=== PATIENT | male | born 1960 | race American Indian/Alaskan Native ===

== ENCOUNTER 2017-03-03 14:21 | Observation (INO) | payer MEDICAID, OTHER ==
--- NOTE | 2017-03-03 15:19 | C.PDOC ---
History Of Present Illness 57 y/o male with PMHx of CHF, DM, HTN, and ESRD on dialysis for 3 years and neuropathy presents to ED requesting dialysis. Patient states he is from [place] and is in [place] for mother's , was not able to get dialysis on Friday. Pt notes he feels tired, no other complaints. Patient also reports hematuria which he has had for a "long time" and "they dont know why". Denies fever, sob, chest pain, leg swelling, nausea, vomiting or any other complaints at this time. Time Seen by Provider: 03/03/17 14:58 Chief Complaint (Nursing): Medical Clearance History Per: Patient History/Exam Limitations: no limitations Onset/Duration Of Symptoms: Days Current Symptoms Are (Timing): Still Present Past Medical History Reviewed: Historical Data, Nursing Documentation, Vital Signs Vital Signs: Last Vital Signs Temp 97.8 F 03/03/17 17:14 Pulse 70 03/03/17 17:14 Resp 16 03/03/17 17:14 BP 126/82 03/03/17 17:14 Pulse Ox 94 L 03/03/17 17:14 - Medical History PMH: CHF, HTN, End Stage Renal Disease Surgical History: No Surg Hx Family History: States: No Known Family Hx - Social History Hx Alcohol Use: No Hx Substance Use: No - Immunization History Hx Tetanus Toxoid Vaccination: No Hx Influenza Vaccination: Yes Hx Pneumococcal Vaccination: Yes Review Of Systems Constitutional: Negative for: Fever, Chills Cardiovascular: Negative for: Chest Pain Respiratory: Negative for: Shortness of Breath Gastrointestinal: Negative for: Nausea, Vomiting Skin: Negative for: Rash Physical Exam - Physical Exam Appears: Non-toxic, No Acute Distress, Other (Morbidly obese) Skin: Warm, Dry, Other ((+) chronic b/l lower leg changes) Head: Atraumatic, Normacephalic Eye(s): bilateral: Normal Inspection, EOMI Nose: Normal Oral Mucosa: Moist Neck: Normal ROM, Supple Chest: Symmetrical Cardiovascular: Rhythm Regular Respiratory: Normal Breath Sounds, No Accessory Muscle Use Gastrointestinal/Abdominal: Soft, No Tenderness, No Guarding Extremity: Normal ROM, Capillary Refill (<2 seconds) Neurological/Psych: Oriented x3 ED Course And Treatment - Laboratory Results Result Diagrams: 03/03/17 15:45 03/03/17 15:45 O2 Sat by Pulse Oximetry: 100 (RA) Pulse Ox Interpretation: Normal Progress Note: Blood work and UA ordered. Case discussed with Dr Morrell, agreed upon admission and dialysis. Case discussed with Dr Acosta , agreeed upon admission. Disposition - Disposition Disposition: HOSPITALIZED Disposition Time: 18:10 Condition: STABLE - Clinical Impression Clinical Impression: ESRD needing dialysis - PA / MEDICAL INTERN / Resident Statement MD/DO has reviewed & agrees with the documentation as recorded. - Scribe Statement The provider has reviewed the documentation as recorded by the Mtibmariangel Rodriguez All medical record entries made by the Jeannette were at my direction and personally dictated by me. I have reviewed the chart and agree that the record accurately reflects my personal performance of the history, physical exam, medical decision making, and the department course for this patient. I have also personally directed, reviewed, and agree with the discharge instructions and disposition.
[2017-03-03 15:57] LABS: BASO # 0.1 K/uL (0.0-0.2); BASO % 1.3 % (0.0-2.0); EOS # 0.3 K/uL (0.0-0.7); EOS % 4.5 % (0.0-4.0); HEMOGLOBIN 10.1 g/dL (12.0-18.0); LYMPH # 1.3 K/uL (1.0-4.3); MEAN CELL VOLUME 98.5 fL (80.0-94.0); MEAN CORPUSCULAR HEMOGLOBIN 32.5 pg (27.0-31.0); MEAN PLATELET VOLUME 7.6 fL (7.2-11.7); MONO # 0.5 K/uL (0.0-0.8); MONO % 9.7 % (0.0-10.0); NEUT # 3.5 K/uL (1.8-7.0); NEUT % 61.5 % (50.0-75.0); NRBC % 0.1 % (0.0-2.0); RBC 3.12 Mil/uL (4.40-5.90); RED CELL DISTRIBUTION WIDTH 14.1 % (11.5-14.5); WHITE BLOOD COUNT 5.6 K/uL (4.8-10.8)
[2017-03-03 16:25] LABS: ALB/GLOB RATIO 1.1 (1.0-2.1); ALBUMIN 3.8 g/dL (3.5-5.0)
[2017-03-03] MEDS: Naproxen 550 mg Tab PO ONE (19:41)
[2017-03-03 20:05] LABS: SQUAMOUS EPITHIAL 2 /hpf (0-5); URINE BACTERIA FEW (<OCC); URINE BILIRUBIN NEGATIVE (NEGATIVE); URINE BLOOD 3+ (NEGATIVE); URINE CLARITY Hazy (Clear); URINE COLOR Yellow (YELLOW); URINE GLUCOSE (UA) NORMAL (Normal); URINE LEUKOCYTE ESTERASE NEG Leu/uL (Negative); URINE NITRATE NEGATIVE (NEGATIVE); URINE PROTEIN 3+ mg/dL (NEGATIVE); URINE UROBILINOGEN NORMAL mg/dL (0.2-1.0)
--- NOTE | 2017-03-03 20:11 | CP.PCM.HP ---
History of Present Illness - History of Present Illness History of Present Illness: PGY-1 H&P for Dr. Acosta CC: missed dialysis This is a 57 year old male with PMHx DM, ESRD on HD (, , ), CHF s/p pacemaker, HTN, CVA (no residual deficits), [place] who presents requesting hemodialysis due to a missed dialysis session lasT Friday. Patient states that he missed his appointment because he was visiting [place] due to the recent passing of his mother. Patient reports generalized body aches for which he states IV opiates are the only thing which effectively deal with his pain. Patient admits that he will periodically be admitted to the hospital back home for pain management in order to receive IV medications to better manage his symptoms. Patient reports that he has no other acute complaints at this time aside from generalized malaise which stems from having missed his dialysis. Patient states that he just started undergoing hemodialysis just a couple of years ago. PMHx: DM, ESRD on HD (, , ), CHF s/p pacemaker, HTN, CVA (no residual deficits), [place] PSHx: Pericardial window, pacemaker insertion Allergies: NKDA Social: Visiting from [place]. States that he quit using tobacco, alcohol, and drugs over 30 years ago. PMD: Dr. Cuellar Home meds: Lisinopril 10 mg daily, Gabapentin 300 mg PO TID, Percocet 10-325mg as needed Present on Admission - Present on Admission Any Indicators Present on Admission: No Review of Systems - Constitutional Constitutional: Chills. absent: Fever - EENT Eyes: absent: Change in Vision Ears: absent: Decreased Hearing Nose/Mouth/Throat: absent: Nasal Congestion - Cardiovascular Cardiovascular: absent: Chest Pain - Respiratory Respiratory: absent: Cough, Dyspnea - Gastrointestinal Gastrointestinal: absent: Abdominal Pain, Constipation, Diarrhea, Nausea, Vomiting - Genitourinary Genitourinary: absent: Dysuria - Musculoskeletal Musculoskeletal: Other (chronic generalized body aches secondary to neuropathy) - Integumentary Integumentary: absent: Rash - Neurological Neurological: absent: Dizziness, Weakness - Psychiatric Psychiatric: absent: Anxiety - Endocrine Endocrine: Fatigue. absent: Palpitations Past Patient History - Infectious Disease Hx of Infectious Diseases: None - Past Social History Smoking Status: Never Smoked - CARDIAC Hx Congestive Heart Failure: Yes Hx Hypertension: Yes - NEUROLOGICAL HX Cerebrovascular Accident: Yes - RENAL Type of Dialysis Access: Left arm av shunt Date of Last Dialysis Treatment: 02/27/17 Hx Renal Failure: Yes Other/Comment: dialysis days -fri - ENDOCRINE/METABOLIC Hx Diabetes Mellitus Type 2: Yes - PSYCHIATRIC Hx Substance Use: No - SURGICAL HISTORY Hx Surgeries: Yes Other/Comment: left arm av shunt placement. heart surgery to remove fluid from the heart - ANESTHESIA Hx Anesthesia: Yes Hx Anesthesia Reactions: No Hx Malignant Hyperthermia: No Meds Allergies/Adverse Reactions: Allergies Allergy/AdvReac Type Severity Reaction Status Date / Time No Known Allergies Allergy Verified 03/03/17 14:47 Physical Exam - Constitutional Appears: No Acute Distress - Head Exam Head Exam: ATRAUMATIC, NORMOCEPHALIC - Eye Exam Eye Exam: EOMI, PERRL - ENT Exam ENT Exam: Mucous Membranes Moist - Respiratory Exam Respiratory Exam: Clear to Auscultation Bilateral, NORMAL BREATHING PATTERN. absent: Rhonchi, Wheezes - Cardiovascular Exam Cardiovascular Exam: Gallop (S3), REGULAR RHYTHM, +S1, +S2 - GI/Abdominal Exam GI & Abdominal Exam: Distended, Normal Bowel Sounds, Soft. absent: Firm, Tenderness Additional comments: morbidly obese body habitus - Extremities Exam Extremities exam: Positive for: pedal edema, pedal pulses present. Negative for : tenderness Additional comments: left arm AV fistula with bruits auscultated - Neurological Exam Neurological exam: Alert, CN II-XII Intact, Oriented x3 - Psychiatric Exam Psychiatric exam: Flat Affect - Skin Skin Exam: Dry, Warm Results - Vital Signs Recent Vital Signs: Last Vital Signs Temp 97.8 F 03/03/17 17:14 Pulse 70 03/03/17 17:14 Resp 16 03/03/17 17:14 BP 82/69 L 03/03/17 19:57 Pulse Ox 100 03/03/17 18:10 - Labs Result Diagrams: 03/03/17 15:45 03/03/17 15:45 Labs: Laboratory Results - last 24 hr 03/03/17 03/03/17 15:45 15:45 WBC 5.6 RBC 3.12 L Hgb 10.1 L Hct 30.7 L MCV 98.5 H MCH 32.5 H MCHC 33.0 RDW 14.1 Plt Count 155 MPV 7.6 Neut % (Auto) 61.5 Lymph % (Auto) 23.0 [place] % (Auto) 9.7 Eos % (Auto) 4.5 H Baso % (Auto) 1.3 Neut # 3.5 Lymph # 1.3 [place] # 0.5 Eos # 0.3 Baso # 0.1 Sodium 135 Potassium 4.4 Chloride 98 Carbon Dioxide 24 Anion Gap 18 BUN 65 H Creatinine 11.9 H* Est GFR ( Amer) 5 Est GFR (Non-Af Amer) 4 Random Glucose 116 H Calcium 9.0 Total Bilirubin 1.7 H AST 15 L ALT 14 L Alkaline Phosphatase 67 Total Protein 7.3 Albumin 3.8 Globulin 3.5 Albumin/Globulin Ratio 1.1 Assessment & Plan - Assessment and Plan (Free Text) Plan: ESRD on HD ED spoke with [employer] Dr. Morrell who was later consulted, help appreciated. Orders for HD T, Th, S placed. History of HTN Continue home Lisinopril 10 mg PO daily History of Diabetes Per patient, he does not take medications for his diabetes Accuchecks Regular ISS F/u hemoglobin A1c History of CHF s/p pacemaker f/u echo History of Neuropathy Continue home Gabapentin 300 mg PO TID Prophylactic Measure Pepcid 20 mg PO daily Heparin 5000 units SC Q8H Renal dialysis diet Dilaudid 1 mg Q6 prn severe pain Case DW Dr. Dave Moncada PGY-1
[2017-03-03] MEDS ORDERED: EPOETIN ALFA 4,000 UNIT/ML ML Dialysis IV SCH (20:15)
[2017-03-03] MEDS ORDERED: HYDROmorphone 1 mg/ml ISec IVP PRN (20:28)
[2017-03-03] MEDS ORDERED: Glucagon Recombinant 1 mg Inj IM PRN (20:30)
[2017-03-03] MEDS ORDERED: Dextrose 50% SYRINGE Inj (50 ml) IV PRN (20:30)
[2017-03-03 20:49] LABS: HEPATITIS B CORE AB Negative (NEGATIVE)
[2017-03-03 21:02] LABS: HEPATITIS C ANTIBODY Negative (NEGATIVE)
[2017-03-03 21:22] LABS: HEPATITIS B SURFACE AG NEGATIVE (NEGATIVE)
[2017-03-03] MEDS: (Novolin R) Insulin Human Regular 100 units/ml vial SC SCH (22:07)
[2017-03-04] MEDS ORDERED: Multivitamin Vitamin B Complex (Nephro-Vite) Tab PO SCH (08:00)
[2017-03-04] MEDS: (Novolin R) Insulin Human Regular 100 units/ml vial SC SCH ×3 (08:18→16:00)
[2017-03-04 14:44] LABS: BASO # 0.1 K/uL (0.0-0.2); BASO % 1.4 % (0.0-2.0); EOS # 0.2 K/uL (0.0-0.7); EOS % 4.7 % (0.0-4.0); HEMOGLOBIN 9.8 g/dL (12.0-18.0); LYMPH # 1.2 K/uL (1.0-4.3); LYMPH % 27.5 % (20.0-40.0); MEAN CELL VOLUME 97.9 fL (80.0-94.0); MEAN CORPUSCULAR HEMOGLOBIN 32.1 pg (27.0-31.0); MEAN CORPUSCULAR HGB CONC 32.8 g/dL (33.0-37.0); MEAN PLATELET VOLUME 7.3 fL (7.2-11.7); MONO # 0.4 K/uL (0.0-0.8); MONO % 7.8 % (0.0-10.0); NEUT # 2.6 K/uL (1.8-7.0); NEUT % 58.6 % (50.0-75.0); RBC 3.06 Mil/uL (4.40-5.90); RED CELL DISTRIBUTION WIDTH 14.2 % (11.5-14.5); WHITE BLOOD COUNT 4.5 K/uL (4.8-10.8)
[2017-03-04 15:04] LABS: CALCIUM 8.3 mg/dl (8.6-10.4); MAGNESIUM 1.6 mg/dL (1.6-2.3)
[2017-03-04 15:13] VITALS: RESP 16
--- NOTE | 2017-03-04 15:40 | CP.PCM.CON ---
History of Present Illness - History of Present Illness History of Present Illness: Renal Note Pt seen and examined will plan for HD today as per TTS schedule epogen with HD as ordered nephrovite 1 tab/day d/c planning pt stable from renal perspective Past Patient History - Infectious Disease Hx of Infectious Diseases: None - Past Social History Smoking Status: Never Smoked - CARDIAC Hx Congestive Heart Failure: Yes Hx Hypertension: Yes - NEUROLOGICAL HX Cerebrovascular Accident: Yes - RENAL Type of Dialysis Access: Left arm av shunt Date of Last Dialysis Treatment: 02/27/17 Hx Renal Failure: Yes Other/Comment: dialysis days [id number] - ENDOCRINE/METABOLIC Hx Diabetes Mellitus Type 2: Yes - PSYCHIATRIC Hx Substance Use: No - SURGICAL HISTORY Hx Surgeries: Yes Other/Comment: left arm av shunt placement. heart surgery to remove fluid from the heart - ANESTHESIA Hx Anesthesia: Yes Hx Anesthesia Reactions: No Hx Malignant Hyperthermia: No Meds Allergies/Adverse Reactions: Allergies Allergy/AdvReac Type Severity Reaction Status Date / Time No Known Allergies Allergy Verified 03/03/17 14:47 - Medications Medications: Current Medications Dextrose (Dextrose 50% Inj) 0 ml IV STAT PRN; Protocol PRN Reason: Hypoglycemia Protocol Dextrose (Glutose 15) 0 gm PO ONCE PRN; Protocol PRN Reason: Hypoglycemia Protocol Epoetin Brent (Procrit) 4,000 unit IV [facility] Famotidine (Pepcid) 20 mg PO DAILY [facility] Last Admin: 03/04/17 12:00 Dose: 20 mg Gabapentin (Neurontin) 300 mg PO TID [facility] Last Admin: 03/04/17 14:00 Dose: Not Given Glucagon (Glucagen Diagnostic Kit) 0 mg IM STAT PRN; Protocol PRN Reason: Hypoglycemia Protocol Heparin Sodium (Porcine) (Heparin) 5,000 units SC Q8 [facility] Last Admin: 03/04/17 14:00 Dose: Not Given Hydromorphone HCl (Dilaudid) 1 mg IVP Q6H PRN PRN Reason: Pain, severe (8-10) Last Admin: 03/04/17 11:55 Dose: 1 mg Dextrose (Dextrose 5% In Water 1000 Ml) 1,000 mls @ 0 mls/hr IV .Q0M PRN; Protocol; Per Protocol PRN Reason: Hypoglycemia Protocol Insulin Human Regular (Novolin R) 0 unit SC ACHS [facility] PRN Reason: Protocol Last Admin: 03/04/17 12:51 Dose: Not Given Lisinopril (Zestril) 10 mg PO DAILY [facility] Last Admin: 03/04/17 11:59 Dose: Not Given Vitamin B Complex/Vit C/Folic Acid (Nephro-Adrian) 1 tab PO 0800 [facility] Last Admin: 03/04/17 08:24 Dose: 1 tab Results - Vital Signs Recent Vital Signs: Last Vital Signs Temp 97.5 F L 03/04/17 14:10 Pulse 77 03/04/17 14:10 Resp 16 03/04/17 14:10 BP 103/67 03/04/17 14:22 Pulse Ox 97 03/04/17 14:10 - Labs Result Diagrams: 03/04/17 14:39 03/04/17 14:39 Labs: Laboratory Results - last 24 hr 03/03/17 03/03/17 03/03/17 15:45 15:45 19:49 WBC 5.6 RBC 3.12 L Hgb 10.1 L Hct 30.7 L MCV 98.5 H MCH 32.5 H MCHC 33.0 RDW 14.1 Plt Count 155 MPV 7.6 Neut % (Auto) 61.5 Lymph % (Auto) 23.0 [place] % (Auto) 9.7 Eos % (Auto) 4.5 H Baso % (Auto) 1.3 Neut # 3.5 Lymph # 1.3 [place] # 0.5 Eos # 0.3 Baso # 0.1 APTT Sodium 135 Potassium 4.4 Chloride 98 Carbon Dioxide 24 Anion Gap 18 BUN 65 H Creatinine 11.9 H* Est GFR ( Amer) 5 Est GFR (Non-Af Amer) 4 POC Glucose (mg/dL) Random Glucose 116 H Hemoglobin A1c Calcium 9.0 Phosphorus Magnesium Total Bilirubin 1.7 H AST 15 L ALT 14 L Alkaline Phosphatase 67 Total Protein 7.3 Albumin 3.8 Globulin 3.5 Albumin/Globulin Ratio 1.1 Triglycerides Cholesterol LDL Cholesterol Direct HDL Cholesterol Urine Color Urine Clarity Urine pH Ur Specific [place] Urine Protein Urine Glucose (UA) Urine Ketones Urine Blood Urine Nitrate Urine Bilirubin Urine Urobilinogen Ur Leukocyte Esterase Urine WBC (Auto) Urine RBC (Auto) Ur Squamous Epith Cells Urine Bacteria Hep Bs Antigen Negative Hep Bs Antibody Hep B Core IgM Ab Negative Hepatitis C Antibody Negative 03/03/17 03/03/17 03/03/17 19:49 19:50 21:49 WBC RBC Hgb Hct MCV MCH MCHC RDW Plt Count MPV Neut % (Auto) Lymph % (Auto) [place] % (Auto) Eos % (Auto) Baso % (Auto) Neut # Lymph # [place] # Eos # Baso # APTT Sodium Potassium Chloride Carbon Dioxide Anion Gap BUN Creatinine Est GFR ( Amer) Est GFR (Non-Af Amer) POC Glucose (mg/dL) 73 Random Glucose Hemoglobin A1c Calcium Phosphorus Magnesium Total Bilirubin AST ALT Alkaline Phosphatase Total Protein Albumin Globulin Albumin/Globulin Ratio Triglycerides Cholesterol LDL Cholesterol Direct HDL Cholesterol Urine Color Yellow Urine Clarity Hazy Urine pH 6.0 Ur Specific [place] 1.014 Urine Protein 3+ H Urine Glucose (UA) Normal Urine Ketones Negative Urine Blood 3+ H Urine Nitrate Negative Urine Bilirubin Negative Urine Urobilinogen Normal Ur Leukocyte Esterase Neg Urine WBC (Auto) 4 Urine RBC (Auto) 966 H Ur Squamous Epith Cells 2 Urine Bacteria Few H Hep Bs Antigen Hep Bs Antibody Indeterminate Hep B Core IgM Ab Hepatitis C Antibody 03/04/17 03/04/17 03/04/17 07:13 11:17 14:39 WBC 4.5 L RBC 3.06 L Hgb 9.8 L Hct 30.0 L MCV 97.9 H MCH 32.1 H MCHC 32.8 L RDW 14.2 Plt Count 156 MPV 7.3 Neut % (Auto) 58.6 Lymph % (Auto) 27.5 [place] % (Auto) 7.8 Eos % (Auto) 4.7 H Baso % (Auto) 1.4 Neut # 2.6 Lymph # 1.2 [place] # 0.4 Eos # 0.2 Baso # 0.1 APTT Sodium Potassium Chloride Carbon Dioxide Anion Gap BUN Creatinine Est GFR ( Amer) Est GFR (Non-Af Amer) POC Glucose (mg/dL) 79 85 Random Glucose Hemoglobin A1c Calcium Phosphorus Magnesium Total Bilirubin AST ALT Alkaline Phosphatase Total Protein Albumin Globulin Albumin/Globulin Ratio Triglycerides Cholesterol LDL Cholesterol Direct HDL Cholesterol Urine Color Urine Clarity Urine pH Ur Specific [place] Urine Protein Urine Glucose (UA) Urine Ketones Urine Blood Urine Nitrate Urine Bilirubin Urine Urobilinogen Ur Leukocyte Esterase Urine WBC (Auto) Urine RBC (Auto) Ur Squamous Epith Cells Urine Bacteria Hep Bs Antigen Hep Bs Antibody Hep B Core IgM Ab Hepatitis C Antibody 03/04/17 03/04/17 03/04/17 14:39 14:39 14:39 WBC RBC Hgb Hct MCV MCH MCHC RDW Plt Count MPV Neut % (Auto) Lymph % (Auto) [place] % (Auto) Eos % (Auto) Baso % (Auto) Neut # Lymph # [place] # Eos # Baso # APTT 33 Sodium 132 Potassium 3.6 Chloride 95 L Carbon Dioxide 25 Anion Gap 16 BUN 43 H Creatinine 9.0 H* D Est GFR ( Amer) 7 Est GFR (Non-Af Amer) 6 POC Glucose (mg/dL) Random Glucose 128 H Hemoglobin A1c 5.5 Calcium 8.3 L Phosphorus 5.7 H Magnesium 1.6 Total Bilirubin AST ALT Alkaline Phosphatase Total Protein Albumin Globulin Albumin/Globulin Ratio Triglycerides 86 Cholesterol 127 LDL Cholesterol Direct 62 HDL Cholesterol 34 Urine Color Urine Clarity Urine pH Ur Specific [place] Urine Protein Urine Glucose (UA) Urine Ketones Urine Blood Urine Nitrate Urine Bilirubin Urine Urobilinogen Ur Leukocyte Esterase Urine WBC (Auto) Urine RBC (Auto) Ur Squamous Epith Cells Urine Bacteria Hep Bs Antigen Hep Bs Antibody Hep B Core IgM Ab Hepatitis C Antibody
--- NOTE | 2017-03-04 15:49 | CP.PCM.DIS ---
Provider - Provider Date of Admission: 03/03/17 17:07 Attending physician: Robin Acosta Jr, MD Consults: Nephro: Porsche Time Spent in preparation of Discharge (in minutes): 31 Hospital Course - Lab Results Lab Results: Most Recent Lab Values WBC 4.5 K/uL (4.8-10.8) L 03/04/17 14:39 RBC 3.06 Mil/uL (4.40-5.90) L 03/04/17 14:39 Hgb 9.8 g/dL (12.0-18.0) L 03/04/17 14:39 Hct 30.0 % (35.0-51.0) L 03/04/17 14:39 MCV 97.9 fL (80.0-94.0) H 03/04/17 14:39 MCH 32.1 pg (27.0-31.0) H 03/04/17 14:39 MCHC 32.8 g/dL (33.0-37.0) L 03/04/17 14:39 RDW 14.2 % (11.5-14.5) 03/04/17 14:39 Plt Count 156 K/uL (130-400) 03/04/17 14:39 MPV 7.3 fL (7.2-11.7) 03/04/17 14:39 Neut % (Auto) 58.6 % (50.0-75.0) 03/04/17 14:39 Lymph % (Auto) 27.5 % (20.0-40.0) 03/04/17 14:39 [place] % (Auto) 7.8 % (0.0-10.0) 03/04/17 14:39 Eos % (Auto) 4.7 % (0.0-4.0) H 03/04/17 14:39 Baso % (Auto) 1.4 % (0.0-2.0) 03/04/17 14:39 Neut # 2.6 K/uL (1.8-7.0) 03/04/17 14:39 Lymph # 1.2 K/uL (1.0-4.3) 03/04/17 14:39 [place] # 0.4 K/uL (0.0-0.8) 03/04/17 14:39 Eos # 0.2 K/uL (0.0-0.7) 03/04/17 14:39 Baso # 0.1 K/uL (0.0-0.2) 03/04/17 14:39 APTT 33 SECONDS (21-34) 03/04/17 14:39 Sodium 132 mmol/L (132-148) 03/04/17 14:39 Potassium 3.6 mmol/L (3.6-5.2) 03/04/17 14:39 Chloride 95 mmol/L (98-107) L 03/04/17 14:39 Carbon Dioxide 25 mmol/L (22-30) 03/04/17 14:39 Anion Gap 16 (10-20) 03/04/17 14:39 BUN 43 mg/dL (9-20) H 03/04/17 14:39 Creatinine 9.0 mg/dL (0.8-1.5) H* D 03/04/17 14:39 Est GFR ( Amer) 7 03/04/17 14:39 Est GFR (Non-Af Amer) 6 03/04/17 14:39 POC Glucose (mg/dL) 85 mg/dL (65-110) 03/04/17 11:17 Random Glucose 128 mg/dL (75-110) H 03/04/17 14:39 Hemoglobin A1c 5.5 % (4.2-6.5) 03/04/17 14:39 Calcium 8.3 mg/dl (8.6-10.4) L 03/04/17 14:39 Phosphorus 5.7 mg/dL (2.5-4.5) H 03/04/17 14:39 Magnesium 1.6 mg/dL (1.6-2.3) 03/04/17 14:39 Total Bilirubin 1.7 mg/dL (0.2-1.3) H 03/03/17 15:45 AST 15 U/L (17-59) L 03/03/17 15:45 ALT 14 U/L (21-72) L 03/03/17 15:45 Alkaline Phosphatase 67 U/L (38-126) 03/03/17 15:45 Total Protein 7.3 g/dL (6.3-8.3) 03/03/17 15:45 Albumin 3.8 g/dL (3.5-5.0) 03/03/17 15:45 Globulin 3.5 gm/dL (2.2-3.9) 03/03/17 15:45 Albumin/Globulin Ratio 1.1 (1.0-2.1) 03/03/17 15:45 Triglycerides 86 mg/dL (0-149) 03/04/17 14:39 Cholesterol 127 mg/dL (0-199) 03/04/17 14:39 LDL Cholesterol Direct 62 mg/dL (0-129) 03/04/17 14:39 HDL Cholesterol 34 mg/dL (30-70) 03/04/17 14:39 Urine Color Yellow (YELLOW) 03/03/17 19:50 Urine Clarity Hazy (Clear) 03/03/17 19:50 Urine pH 6.0 (5.0-8.0) 03/03/17 19:50 Ur Specific [place] 1.014 (1.003-1.030) 03/03/17 19:50 Urine Protein 3+ mg/dL (NEGATIVE) H 03/03/17 19:50 Urine Glucose (UA) Normal mg/dL (Normal) 03/03/17 19:50 Urine Ketones Negative mg/dL (NEGATIVE) 03/03/17 19:50 Urine Blood 3+ (NEGATIVE) H 03/03/17 19:50 Urine Nitrate Negative (NEGATIVE) 03/03/17 19:50 Urine Bilirubin Negative (NEGATIVE) 03/03/17 19:50 Urine Urobilinogen Normal mg/dL (0.2-1.0) 03/03/17 19:50 Ur Leukocyte Esterase Neg [place]/uL (Negative) 03/03/17 19:50 Urine WBC (Auto) 4 /hpf (0-5) 03/03/17 19:50 Urine RBC (Auto) 966 /hpf (0-3) H 03/03/17 19:50 Ur Squamous Epith Cells 2 /hpf (0-5) 03/03/17 19:50 Urine Bacteria Few (<OCC) H 03/03/17 19:50 Hep Bs Antigen Negative (NEGATIVE) 03/03/17 19:49 Hep Bs Antibody Indeterminate (NEGATIVE) 03/03/17 19:49 Hep B Core IgM Ab Negative (NEGATIVE) 03/03/17 19:49 Hepatitis C Antibody Negative (NEGATIVE) 03/03/17 19:49 - Hospital Course Hospital Course: This is a 57 year old male with PMHx DM, ESRD on HD (T, , S), CHF s/p pacemaker, HTN, CVA (no residual deficits), [place] who presents requesting hemodialysis due to a missed dialysis session lasT Friday. Patient states that he missed his appointment because he was visiting [place] due to the recent passing of his mother. Patient reports generalized body aches for which he states IV opiates are the only thing which effectively deal with his pain. Patient admits that he will periodically be admitted to the hospital back home for pain management in order to receive IV medications to better manage his symptoms. Patient reports that he has no other acute complaints at this time aside from generalized malaise which stems from having missed his dialysis. Patient states that he just started undergoing hemodialysis just a couple of years ago. Patient was admitted to the hospital. Nephrology was consulted. Patient went for dialysis on night of admission. Patient also went for dialysis on scheduled dialysis day (Friday). Patient has a history of CHF. Echo was done and showed LVEF 51% (prelim report). Patient was medically stable per Nephrology and discharged home. Patient instructed to continue home medications and follow up with PMD upon discharge. Patient also advised to keep his dialysis session. In the event that he misses another dialysis session, patient advised to go to the nearest Emergency Dept. All question and concerns were addressed. Discharge Exam - Head Exam Head Exam: ATRAUMATIC, NORMOCEPHALIC - Eye Exam Eye Exam: EOMI, Normal appearance - ENT Exam ENT Exam: Mucous Membranes Moist - Respiratory Exam Respiratory Exam: Clear to PA & Lateral, NORMAL BREATHING PATTERN, UNREMARKABLE. absent: Decreased Breath Sounds, Rales, Rhonchi, Wheezes - Cardiovascular Exam Cardiovascular Exam: REGULAR RHYTHM, +S1, +S2 - GI/Abdominal Exam GI & Abdominal Exam: Normal Bowel Sounds, Soft. absent: Guarding, Rebound, Rigid, Tenderness Additional comments: +obese - Extremities Exam Extremities exam: pedal pulses present Additional comments: L arm AVF : +thrill, distal pulses intact - Neurological Exam Neurological exam: Alert, Oriented x3 - Psychiatric Exam Psychiatric exam: Flat Affect, Normal Mood - Skin Skin Exam: Dry, Normal Color, Warm Discharge Plan - Follow Up Plan Condition: STABLE Disposition: HOME/ ROUTINE Instructions: Dialysis Diet (DC), End Stage Kidney Disease (DC) Referrals: Robin Acosta Jr., MD [Medical Doctor] - Clinical Quality Measures - CQM - Heart Failure Ejection Fraction: 40 % or Greater JAMES Inhibitor Prescribed: Yes Beta-Nery Prescribed: None Contraindication/Reason for not providing: Episodes of Hypotension during admission Angiotensin II Receptor Nery Prescribed: No Contraindication/Reason for not providing: Patient on ACEi AnticoagulationTherapy for Atrial Fibrillation/Atrialflutter: No Contraindication/Reason for not providing: Not indicated, no history of Afib Aldosterone Antagonist Prescribed: No Contraindication/Reason for not providing: Episodes on hypotension Hydralazine Nitrate Prescribed: No Contraindication/Reason for not providing: Not indicated Implantable Cardioverter Defibrillator Therapy: No Contraindication/Reason for not providing: Normal LVEF 51% Cardiac Resynchronization Therapy Prescribed: No Contraindication/Reason for not providing: Not indicated Will be discharged to: Home Follow Up Date (must be within 7 days from discharge): 03/11/17 Follow Up Time: 09:00
[2017-03-04] MEDS ORDERED: EPOETIN ALFA 4,000 UNIT/ML ML Dialysis IV SCH (15:52)
[2017-03-04 17:46] VITALS: BP 129/67; PULSE 68; TEMP 97.3; O2SAT 98
--- NOTE | 2017-03-05 07:20 | CARD ---
APPROVED REPORT EXAM: Two-dimensional and M-mode echocardiogram with Doppler and color Doppler. Other Information Quality : AverageRhythm : INDICATION Pericardial Effusion Acute DE Congestive Heart Failure RISK FACTORS Obesity 2D DIMENSIONS IVSd0.9 (0.7-1.1cm)LVDd6.5 (3.9-5.9cm) PWd1.2 (0.7-1.1cm)LVDs4.7 (2.5-4.0cm) FS (%) 27.0 %PWs1.5 (0.8-1.2cm) LVEF (%)25.0 (>50%) M-Mode DIMENSIONS LVEF (%)25 (>50%) Mitral Valve MV E Muecdbze239.6cm/sE/A ratio0.0 TDI E/Lateral E'0.0E/Medial E'0.0 Tricuspid Valve TR Peak [id number]/sTR Peak Gr.[id number] LEFT VENTRICLE The Left Ventricle is moderately dilated. There is normal left ventricular wall thickness. Left ventricle is severely impaired. The Ejection Fraction is 25-30%. There is severe global hypokinesis of the left ventricle. The left ventricular diastolic function is normal. RIGHT VENTRICLE The right ventricle is normal size. There is normal right ventricular wall thickness. The right ventricular systolic function is normal. ATRIA The left atrium is moderately dilated. The right atrium is mildly dilated. The interatrial septum is intact with no evidence for an atrial septal defect. AORTIC VALVE The aortic valve is mildly thickened and calcified but opens well- can't rule out vegetations. Please correlate clinically. No aortic regurgitation is present. There is no aortic valvular stenosis. MITRAL VALVE Mitral annular calcification is mild. The posterior mitral valve leaflet appears thickened, but open well. There is no evidence of mitral valve prolapse. There is no mitral valve stenosis. Mitral regurgitation is mild. TRICUSPID VALVE The tricuspid valve is normal in structure. There is mild to moderate tricuspid regurgitation. Right ventricular systolic pressure is estimated at greater than 60 mmHg. There is severe pulmonary hypertension. There is no tricuspid valve prolapse or vegetation. There is no tricuspid valve stenosis. PULMONIC VALVE The pulmonic valve is not well visualized. There is no pulmonic valvular regurgitation. GREAT VESSELS The aortic root is normal in size. PERICARDIAL EFFUSION There is no siginificant pericardial effusion. <Conclusion> Left ventricle is severely impaired. The Ejection Fraction is 25-30%. No aortic regurgitation is present. Mitral regurgitation is mild. There is mild to moderate tricuspid regurgitation. There is severe pulmonary hypertension. There is no pulmonic valvular regurgitation.
== END 2017-03-04 22:43 | disposition home or self-care (01) ==
LOC: C.ER 14:21 → C.9E 17:07 → C.3T 19:40
PROVIDERS: ADMIT Internal Medicine; ATTEND Internal Medicine
DX: I13.2 Hypertensive heart and chronic kidney disease with heart failure and with stage 5 chronic kidney disease, or end stage renal disease (principal); N18.6 End stage renal disease; I50.9 Heart failure, unspecified; Z87.891 Personal history of nicotine dependence; Z99.2 Dependence on renal dialysis
CPT/HCPCS: 36415; 80048; 80053; 80061; 81001; 82948; 83036; 83735; 84100; 85025; 85730; 86705; 86706; 86803; 87340; 93306; 99285; G0257; G0378; J0885; J1170; J1644

== ENCOUNTER 2017-03-06 14:55 | Observation (INO) | payer MEDICAID ==
--- NOTE | 2017-03-06 16:24 | C.PDOC ---
History Of Present Illness 57-year-old male, PMHx includes ESRD (dialysis //Fri), presents to the emergency department with complaints of bodyaches and pain in legs. Patient states he is traveling here from [place], and has not been able to receive dialysis. Patient states he was seen on 03/03 and had a normal exam. Denies chest pain, shortness of breath, fevers, chills, dizziness, or any other associated symptoms. No other complaints at this time. Time Seen by Provider: 03/06/17 15:49 Chief Complaint (Nursing): Lower Extremity Problem/Injury History Per: Patient Past Medical History Reviewed: Historical Data, Nursing Documentation, Vital Signs Vital Signs: Last Vital Signs Temp 98.3 F 03/06/17 15:13 Pulse 73 03/06/17 15:13 Resp 18 03/06/17 15:13 BP 143/84 03/06/17 15:13 Pulse Ox 99 03/06/17 18:47 - Medical History PMH: Atrial Fibrillation, CHF, HTN, End Stage Renal Disease Surgical History: Pacemaker Family History: States: No Known Family Hx - Social History Hx Alcohol Use: No Hx Substance Use: No - Immunization History Hx Tetanus Toxoid Vaccination: No Hx Influenza Vaccination: Yes Hx Pneumococcal Vaccination: Yes Review Of Systems Except As Marked, All Systems Reviewed And Found Negative. Constitutional: Positive for: Malaise. Negative for: Fever, Chills Cardiovascular: Negative for: Chest Pain Respiratory: Negative for: Cough, Shortness of Breath Gastrointestinal: Negative for: Nausea, Vomiting Musculoskeletal: Positive for: Leg Pain. Negative for: Back Pain Neurological: Negative for: Weakness, Numbness, Headache, Dizziness Physical Exam - Physical Exam Appears: Non-toxic, No Acute Distress Skin: Warm, Dry, No Rash Head: Atraumatic, Normacephalic Eye(s): bilateral: Normal Inspection, PERRL, EOMI Nose: Normal Oral Mucosa: Moist Lips: Normal Appearing Neck: Normal ROM Chest: Symmetrical Cardiovascular: Rhythm Regular, No Murmur Respiratory: Normal Breath Sounds, No Accessory Muscle Use Gastrointestinal/Abdominal: Soft, No Tenderness Back: Normal Inspection, No CVA Tenderness Extremity: Normal ROM, No Swelling Neurological/Psych: Oriented x3, Normal Speech, Normal Motor Gait: Steady ED Course And Treatment - Laboratory Results Result Diagrams: 03/06/17 17:03/06/17 17:00 ECG Rhythm: Atrial Fibrillation Interpretation Of ECG: No prior for comparison, but patient states he has a history of Afib. normal R wave progression. Rate From EC O2 Sat by Pulse Oximetry: 99 (ON RA) Pulse Ox Interpretation: Normal - Radiology CXR: Interpreted by Me, Viewed By Me, Read By Radiologist CXR Interpretation: Yes: Cardiomegaly, Other (AICD in place) Medical Decision Making Medical Decision Making: The case was discussed with Dr. Eid (nephrology) who agrees to consult for the patient and coordinate the dialysis. Case was discussed with Dr. Salgado ( internal medicine oncall) who agrees to place the patient on observation. Disposition - Disposition Disposition: HOSPITALIZED Disposition Time: 18:38 Condition: FAIR Forms: [facility] (Georgian) - POA Present On Arrival: None - Clinical Impression Clinical Impression: ESRD needing dialysis - Scribe Statement The provider has reviewed the documentation as recorded by the Scribe (Judy Montgomery) All medical record entries made by the Scribe were at my direction and personally dictated by me. I have reviewed the chart and agree that the record accurately reflects my personal performance of the history, physical exam, medical decision making, and the department course for this patient. I have also personally directed, reviewed, and agree with the discharge instructions and disposition.
[2017-03-06 17:05] LABS: BASO # 0.1 K/uL (0.0-0.2); BASO % 1.5 % (0.0-2.0); EOS # 0.2 K/uL (0.0-0.7); EOS % 4.2 % (0.0-4.0); HEMOGLOBIN 10.6 g/dL (12.0-18.0); LYMPH # 1.3 K/uL (1.0-4.3); LYMPH % 23.9 % (20.0-40.0); MEAN CELL VOLUME 97.9 fL (80.0-94.0); MEAN CORPUSCULAR HEMOGLOBIN 31.6 pg (27.0-31.0); MEAN CORPUSCULAR HGB CONC 32.3 g/dL (33.0-37.0); MEAN PLATELET VOLUME 7.2 fL (7.2-11.7); MONO # 0.5 K/uL (0.0-0.8); MONO % 8.8 % (0.0-10.0); NEUT # 3.3 K/uL (1.8-7.0); NEUT % 61.6 % (50.0-75.0); NRBC % 0.1 % (0.0-2.0); RBC 3.35 Mil/uL (4.40-5.90); RED CELL DISTRIBUTION WIDTH 14.2 % (11.5-14.5); WHITE BLOOD COUNT 5.3 K/uL (4.8-10.8)
[2017-03-06 17:13] LABS: INR 1.3; PROTHROMBIN TIME 14.8 SECONDS (9.7-12.2)
[2017-03-06 17:44] LABS: CALCIUM 8.8 mg/dl (8.6-10.4)
--- NOTE | 2017-03-06 17:54 | RAD ---
HISTORY: SOB COMPARISON: None available. TECHNIQUE: Chest PA and lateral FINDINGS: Examination limited by habitus. LUNGS: No focal consolidation. Please note that chest x-ray has limited sensitivity for the detection of pulmonary masses. PLEURA: No significant pleural effusion identified. No definite pneumothorax . CARDIOVASCULAR: Left-sided AICD. Cardiomegaly. OSSEOUS STRUCTURES: Mild kyphosis. Degenerative changes. VISUALIZED UPPER ABDOMEN: Unremarkable. OTHER FINDINGS: None. IMPRESSION: Left-sided AICD. Cardiomegaly.
[2017-03-06] MEDS ORDERED: Oxycodone/Acetaminophen 5/325 mg Tab PO PRN (19:15)
--- NOTE | 2017-03-06 23:21 | CP.PCM.HP ---
History of Present Illness - History of Present Illness History of Present Illness: 57-year-old male, PMHx includes ESRD (dialysis //Fri), presents to the emergency department with complaints of bodyaches and pain in legs. Patient states he is traveling here from [place], and has not been able to receive dialysis. Patient states he was seen on 03/03 and had a normal exam. Denies chest pain, shortness of breath, fevers, chills, dizziness, or any other associated symptoms. No other complaints at this time. Past Patient History - Infectious Disease Hx of Infectious Diseases: None - Past Social History Smoking Status: Never Smoked - CARDIAC Hx Atrial Fibrillation: Yes Hx Congestive Heart Failure: Yes Hx Hypertension: Yes Hx Pacemaker: Yes - NEUROLOGICAL HX Cerebrovascular Accident: Yes - RENAL Type of Dialysis Access: L AVS Date of Last Dialysis Treatment: 03/04/17 Hx Renal Failure: Yes Other/Comment: dialysis days [id number] - ENDOCRINE/METABOLIC Hx Diabetes Mellitus Type 2: Yes - PSYCHIATRIC Hx Substance Use: No - SURGICAL HISTORY Hx Surgeries: Yes Other/Comment: left arm av shunt placement. heart surgery to remove fluid from the heart - ANESTHESIA Hx Anesthesia: Yes Hx Anesthesia Reactions: No Hx Malignant Hyperthermia: No Meds Allergies/Adverse Reactions: Allergies Allergy/AdvReac Type Severity Reaction Status Date / Time No Known Allergies Allergy Verified 03/03/17 14:47 Results - Vital Signs Recent Vital Signs: Last Vital Signs Temp 98 F 03/06/17 22:39 Pulse 72 03/06/17 22:39 Resp 16 03/06/17 22:39 BP 116/71 03/06/17 22:39 Pulse Ox 97 03/06/17 22:39 - Labs Result Diagrams: 03/06/17 17:00 03/06/17 17:00 Labs: Laboratory Results - last 24 hr 03/06/17 03/06/17 03/06/17 17:00 17:00 17:00 WBC 5.3 RBC 3.35 L Hgb 10.6 L Hct 32.8 L MCV 97.9 H MCH 31.6 H MCHC 32.3 L RDW 14.2 Plt Count 170 MPV 7.2 Neut % (Auto) 61.6 Lymph % (Auto) 23.9 [place] % (Auto) 8.8 Eos % (Auto) 4.2 H Baso % (Auto) 1.5 Neut # 3.3 Lymph # 1.3 [place] # 0.5 Eos # 0.2 Baso # 0.1 PT 14.8 H INR 1.3 APTT 33 Sodium 135 Potassium 4.2 Chloride 94 L Carbon Dioxide 24 Anion Gap 21 H BUN 69 H Creatinine 10.5 H* Est GFR ( Amer) 6 Est GFR (Non-Af Amer) 5 Random Glucose 139 H Calcium 8.8 Total Bilirubin 1.4 H AST 28 ALT 11 L D Alkaline Phosphatase 75 NT-Pro-B Natriuret Pep 97464 H Total Protein 7.9 Albumin 4.0 Globulin 3.8 Albumin/Globulin Ratio 1.0
[2017-03-07] MEDS ORDERED: Morphine 4 MG/ML VIAL IVP ONE (01:01)
--- NOTE | 2017-03-07 15:20 | CP.PCM.PN ---
Subjective - Date & Time of Evaluation Date of Evaluation: 03/07/17 Time of Evaluation: 15:20 - Subjective Subjective: PT SEEN BY RENAL AND 3 HOUR HD SCHEDULED FOR TONIGHT. PT REQUESTING TO BE DC HOME AFTER HD. PER DR. GARCIA PT CAN BE D/C THIS EVENING AFTER HD. PT'S FLIGHT BACK TO [place] IN SCHEDULED FOR FRIDAY. PER SOC WORKER (BASED O NHIS INSURANCE COVERAGE HE HAS NO OUT OF STATE BENEFITS UNLESS ITS IN THE HOSPITAL) IF HE NEEDS HD AND IS IN RESPIRATORY DISTRESS, HE IS TO GO TO THE NEAREST ED. DISCUSS THIS WITH PT AND HE IS IN AGREEMENT AND VERBALIZES UNDERSTANDING OF PLAN. NO FURTHER ORDERS. Objective - Vital Signs/Intake and Output Vital Signs (last 24 hours): Temp Pulse Resp BP Pulse Ox 98.2 F 74 20 121/82 97 03/07/17 07:48 03/07/17 07:48 03/07/17 07:48 03/07/17 07:48 03/07/17 07:48 Intake and Output: 03/07/17 03/07/17 06:59 18:59 Intake Total 120 250 Balance 120 250 - Medications Medications: Current Medications Epoetin Brent (Procrit) 4,000 unit IV TTS [facility] Gabapentin (Neurontin) 300 mg PO TID [facility] Last Admin: 03/07/17 13:43 Dose: 300 mg Heparin Sodium (Porcine) (Heparin) 5,000 units SC Q8 [facility] Last Admin: 03/07/17 13:43 Dose: 5,000 units Hydromorphone HCl (Dilaudid) 1 mg SC Q6H PRN PRN Reason: Pain, severe (8-10) Last Admin: 03/07/17 12:17 Dose: 1 mg Lisinopril (Zestril) 10 mg PO DAILY [facility] Last Admin: 03/07/17 10:03 Dose: 10 mg Sevelamer Carbonate (Renvela) 800 mg PO TID [facility] Last Admin: 03/07/17 13:43 Dose: 800 mg Vitamin B Complex/Vit C/Folic Acid (Nephro-Adrian) 1 tab PO 0800 [facility] - Labs Labs: 03/06/17 17:00 03/06/17 17:00 PT 14.8 SECONDS (9.7-12.2) H 03/06/17 17:00 INR 1.3 03/06/17 17:00 APTT 33 SECONDS (21-34) 03/06/17 17:00
--- NOTE | 2017-03-07 15:27 | CP.PCM.CON ---
History of Present Illness - History of Present Illness History of Present Illness: renal note pt is TTS as per usual dialysis schedule he is requesting to get HD today says will not be coming for HD tomorrow received a session of HD yesterday Past Patient History - Infectious Disease Hx of Infectious Diseases: None - Past Social History Smoking Status: Never Smoked - CARDIAC Hx Atrial Fibrillation: Yes Hx Congestive Heart Failure: Yes Hx Hypertension: Yes Hx Pacemaker: Yes - NEUROLOGICAL HX Cerebrovascular Accident: Yes - RENAL Type of Dialysis Access: L AVS Date of Last Dialysis Treatment: 03/04/17 Hx Renal Failure: Yes Other/Comment: dialysis days - ENDOCRINE/METABOLIC Hx Diabetes Mellitus Type 2: Yes - PSYCHIATRIC Hx Substance Use: No - SURGICAL HISTORY Hx Surgeries: Yes Other/Comment: left arm av shunt placement. heart surgery to remove fluid from the heart - ANESTHESIA Hx Anesthesia: Yes Hx Anesthesia Reactions: No Hx Malignant Hyperthermia: No Meds Allergies/Adverse Reactions: Allergies Allergy/AdvReac Type Severity Reaction Status Date / Time No Known Allergies Allergy Verified 03/03/17 14:47 - Medications Medications: Current Medications Epoetin Brent (Procrit) 4,000 unit IV TTS [facility] Gabapentin (Neurontin) 300 mg PO TID [facility] Last Admin: 03/07/17 13:43 Dose: 300 mg Heparin Sodium (Porcine) (Heparin) 5,000 units SC Q8 [facility] Last Admin: 03/07/17 13:43 Dose: 5,000 units Hydromorphone HCl (Dilaudid) 1 mg SC Q6H PRN PRN Reason: Pain, severe (8-10) Last Admin: 03/07/17 12:17 Dose: 1 mg Lisinopril (Zestril) 10 mg PO DAILY [facility] Last Admin: 03/07/17 10:03 Dose: 10 mg Sevelamer Carbonate (Renvela) 800 mg PO TID [facility] Last Admin: 03/07/17 13:43 Dose: 800 mg Vitamin B Complex/Vit C/Folic Acid (Nephro-Adrian) 1 tab PO 0800 [facility] Results - Vital Signs Recent Vital Signs: Last Vital Signs Temp 98.2 F 03/07/17 07:48 Pulse 74 03/07/17 07:48 Resp 20 03/07/17 07:48 BP 121/82 03/07/17 07:48 Pulse Ox 97 03/07/17 07:48 - Labs Result Diagrams: 03/06/17 17:00 03/06/17 17:00 Labs: Laboratory Results - last 24 hr 03/06/17 03/06/17 03/06/17 17:00 17:00 17:00 WBC 5.3 RBC 3.35 L Hgb 10.6 L Hct 32.8 L MCV 97.9 H MCH 31.6 H MCHC 32.3 L RDW 14.2 Plt Count 170 MPV 7.2 Neut % (Auto) 61.6 Lymph % (Auto) 23.9 [place] % (Auto) 8.8 Eos % (Auto) 4.2 H Baso % (Auto) 1.5 Neut # 3.3 Lymph # 1.3 [place] # 0.5 Eos # 0.2 Baso # 0.1 PT 14.8 H INR 1.3 APTT 33 Sodium 135 Potassium 4.2 Chloride 94 L Carbon Dioxide 24 Anion Gap 21 H BUN 69 H Creatinine 10.5 H* Est GFR ( Amer) 6 Est GFR (Non-Af Amer) 5 Random Glucose 139 H Calcium 8.8 Total Bilirubin 1.4 H AST 28 ALT 11 L D Alkaline Phosphatase 75 NT-Pro-B Natriuret Pep 66278 H Total Protein 7.9 Albumin 4.0 Globulin 3.8 Albumin/Globulin Ratio 1.0
[2017-03-07 15:59] VITALS: RESP 18
[2017-03-07 18:41] VITALS: BP 106/71; PULSE 78; TEMP 97.5; O2SAT 95
--- NOTE | 2017-03-07 23:17 | CP.PCM.DIS ---
Provider - Provider Date of Admission: 03/06/17 18:38 Attending physician: Shiraz Salgado MD Hospital Course - Lab Results Lab Results: Most Recent Lab Values WBC 5.3 K/uL (4.8-10.8) 03/06/17 17:00 RBC 3.35 Mil/uL (4.40-5.90) L 03/06/17 17:00 Hgb 10.6 g/dL (12.0-18.0) L 03/06/17 17:00 Hct 32.8 % (35.0-51.0) L 03/06/17 17:00 MCV 97.9 fL (80.0-94.0) H 03/06/17 17:00 MCH 31.6 pg (27.0-31.0) H 03/06/17 17:00 MCHC 32.3 g/dL (33.0-37.0) L 03/06/17 17:00 RDW 14.2 % (11.5-14.5) 03/06/17 17:00 Plt Count 170 K/uL (130-400) 03/06/17 17:00 MPV 7.2 fL (7.2-11.7) 03/06/17 17:00 Neut % (Auto) 61.6 % (50.0-75.0) 03/06/17 17:00 Lymph % (Auto) 23.9 % (20.0-40.0) 03/06/17 17:00 [place] % (Auto) 8.8 % (0.0-10.0) 03/06/17 17:00 Eos % (Auto) 4.2 % (0.0-4.0) H 03/06/17 17:00 Baso % (Auto) 1.5 % (0.0-2.0) 03/06/17 17:00 Neut # 3.3 K/uL (1.8-7.0) 03/06/17 17:00 Lymph # 1.3 K/uL (1.0-4.3) 03/06/17 17:00 [place] # 0.5 K/uL (0.0-0.8) 03/06/17 17:00 Eos # 0.2 K/uL (0.0-0.7) 03/06/17 17:00 Baso # 0.1 K/uL (0.0-0.2) 03/06/17 17:00 PT 14.8 SECONDS (9.7-12.2) H 03/06/17 17:00 INR 1.3 03/06/17 17:00 APTT 33 SECONDS (21-34) 03/06/17 17:00 Sodium 135 mmol/L (132-148) 03/06/17 17:00 Potassium 4.2 mmol/L (3.6-5.2) 03/06/17 17:00 Chloride 94 mmol/L (98-107) L 03/06/17 17:00 Carbon Dioxide 24 mmol/L (22-30) 03/06/17 17:00 Anion Gap 21 (10-20) H 03/06/17 17:00 BUN 69 mg/dL (9-20) H 03/06/17 17:00 Creatinine 10.5 mg/dL (0.8-1.5) H* 03/06/17 17:00 Est GFR ( Amer) 6 03/06/17 17:00 Est GFR (Non-Af Amer) 5 03/06/17 17:00 Random Glucose 139 mg/dL (75-110) H 03/06/17 17:00 Calcium 8.8 mg/dl (8.6-10.4) 03/06/17 17:00 Total Bilirubin 1.4 mg/dL (0.2-1.3) H 03/06/17 17:00 AST 28 U/L (17-59) 03/06/17 17:00 ALT 11 U/L (21-72) L D 03/06/17 17:00 Alkaline Phosphatase 75 U/L (38-126) 03/06/17 17:00 NT-Pro-B Natriuret Pep 25849 pg/mL (0-900) H 03/06/17 17:00 Total Protein 7.9 g/dL (6.3-8.3) 03/06/17 17:00 Albumin 4.0 g/dL (3.5-5.0) 03/06/17 17:00 Globulin 3.8 gm/dL (2.2-3.9) 03/06/17 17:00 Albumin/Globulin Ratio 1.0 (1.0-2.1) 03/06/17 17:00 - Hospital Course Hospital Course: PT SEEN BY RENAL AND 3 HOUR HD SCHEDULED FOR TONIGHT. PT REQUESTING TO BE DC HOME AFTER HD. PER DR. SALGADO PT CAN BE D/C THIS EVENING AFTER HD. PT'S FLIGHT BACK TO [place] IN SCHEDULED FOR FRIDAY. PER SOC WORKER (BASED O NHIS INSURANCE COVERAGE HE HAS NO OUT OF STATE BENEFITS UNLESS ITS IN THE HOSPITAL) IF HE NEEDS HD AND IS IN RESPIRATORY DISTRESS, HE IS TO GO TO THE NEAREST ED. DISCUSS THIS WITH PT AND HE IS IN AGREEMENT AND VERBALIZES UNDERSTANDING OF PLAN. NO FURTHER ORDERS. Discharge Plan - Follow Up Plan Condition: FAIR Disposition: HOME/ ROUTINE Instructions: Heart Failure (DC), Chronic Kidney Disease (DC), Renal Failure Diet (DC) Additional Instructions: FOLLOW UP WITH YOUR PRIMARY DOCTOR SOON YOU GET BACK TO [place]. IF YOU NEED TO BE SEEN FOR ANY EMERGENCY BEFORE YOUR FLIGHT ON FRIDAY YOU MAY RETURN TO THE ED. CONTINUE ALL OF YOUR HOME MEDICATIONS USUAL. NO NEW PRESCRIPTIONS. SOON YOU GET BACK TO [place] CONTINUE WITH YOUR USUAL DIALYSIS DAYS. YOU MAY BE DUE FOR DIALYSIS ON FRIDAY---PER THE LABOR SPECIALIST IF YOU NEED TO BE DIALYZED AND IN RESPIRATORY DISTRESS, GO TO THE NEAREST EMERGENCY ROOM. FOR ANY OTHER QUESTIONS, CONTACT DR. SALGADO. Referrals: Sushant Morrell MD [Staff Provider] - Shiraz Salgado MD [Staff Provider] -
[2017-03-08] MEDS ORDERED: Multivitamin Vitamin B Complex (Nephro-Vite) Tab PO SCH (08:00)
[2017-03-08] MEDS ORDERED: Epoetin Alfa Dialysis 40000 UNIT/ml Inj IV SCH (10:00)
== END 2017-03-07 20:30 | disposition home or self-care (01) ==
LOC: C.ER 14:55 → C.9E 18:38 → C.3T 20:59
PROVIDERS: ADMIT Internal Medicine; ATTEND Internal Medicine
DX: I13.2 Hypertensive heart and chronic kidney disease with heart failure and with stage 5 chronic kidney disease, or end stage renal disease (principal); E11.22 Type 2 diabetes mellitus with diabetic chronic kidney disease; N18.6 End stage renal disease; I50.9 Heart failure, unspecified; I48.91 Unspecified atrial fibrillation
CPT/HCPCS: 71046; 80053; 83880; 85025; 85610; 85730; 99283; G0257; G0378; J1170; J1644; J2270

== ENCOUNTER 2017-03-10 11:43 | Observation (INO) | payer MEDICAID ==
--- NOTE | 2017-03-10 12:36 | C.PDOC ---
History Of Present Illness 57 y/o male hx ENSRD T-TH-Sat presents to the ED requesting for dialysis for today. The patient is requesting for dialysis today. The patient is visiting from [place] and had previous arrangements here for dialysis. The patient denies chest pain, SOB, nausea, vomiting, rash,and diarrhea. Time Seen by Provider: 03/10/17 12:04 Chief Complaint (Nursing): Medical Clearance History Per: Patient History/Exam Limitations: no limitations Onset/Duration Of Symptoms: Hrs Current Symptoms Are (Timing): Still Present Additional History Per: Patient Past Medical History Reviewed: Historical Data, Nursing Documentation, Vital Signs Vital Signs: Last Vital Signs Temp 98.7 F 03/10/17 12:00 Pulse 76 03/10/17 12:00 Resp 18 03/10/17 12:00 BP 144/88 03/10/17 12:00 Pulse Ox 100 03/10/17 13:01 - Medical History PMH: Atrial Fibrillation, CHF, HTN, End Stage Renal Disease Surgical History: Pacemaker Family History: States: No Known Family Hx - Social History Hx Alcohol Use: No Hx Substance Use: No - Immunization History Hx Tetanus Toxoid Vaccination: No Hx Influenza Vaccination: Yes Hx Pneumococcal Vaccination: Yes Review Of Systems Except As Marked, All Systems Reviewed And Found Negative. Constitutional: Negative for: Fever Cardiovascular: Negative for: Chest Pain Respiratory: Negative for: Cough, Shortness of Breath Gastrointestinal: Negative for: Nausea, Vomiting, Diarrhea Musculoskeletal: Negative for: Hand Pain Skin: Negative for: Rash Neurological: Negative for: Weakness Physical Exam - Physical Exam Appears: Non-toxic, No Acute Distress Skin: Warm, Dry, Other Head: Atraumatic Eye(s): bilateral: Normal Inspection Oral Mucosa: Moist Throat: Normal Neck: Supple Chest: Symmetrical Cardiovascular: Rhythm Regular Respiratory: Normal Breath Sounds, No Rales, No Rhonchi Gastrointestinal/Abdominal: Soft, No Tenderness, No Guarding, No Rebound Back: No CVA Tenderness Extremity: No Tenderness, Capillary Refill (2<sec. ), Other (thrill over left arm AV fistula ) Neurological/Psych: Oriented x3, Normal Speech, Normal Cognition Gait: Steady ED Course And Treatment - Laboratory Results Result Diagrams: 03/10/17 12:36 ECG Rhythm: Sinus Rhythm (AV Fib recontrol at 75bpm, no intervals,nonspecific st waves and t waves ) O2 Sat by Pulse Oximetry: 100 Progress Note: EKG and Blood work,and Dialysis were performed . IV fluids were given. Disposition Discussed With : Angie Finney Doctor Will See Patient In The: Hospital Counseled Patient/Family Regarding: Studies Performed, Diagnosis - Disposition Disposition: HOSPITALIZED Disposition Time: 12:35 Condition: FAIR - Clinical Impression Clinical Impression: ESRD needing dialysis - Scribe Statement The provider has reviewed the documentation as recorded by the Scribmariangel Powers
[2017-03-10 12:44] LABS: BASO % 0.2 % (0.0-2.0); EOS # 0.2 K/uL (0.0-0.7); HEMOGLOBIN 10.6 g/dL (12.0-18.0); LYMPH # 1.5 K/uL (1.0-4.3); LYMPH % 30.7 % (20.0-40.0); MEAN CELL VOLUME 98.7 fL (80.0-94.0); MEAN CORPUSCULAR HEMOGLOBIN 32.5 pg (27.0-31.0); MEAN CORPUSCULAR HGB CONC 32.9 g/dL (33.0-37.0); MEAN PLATELET VOLUME 7.9 fL (7.2-11.7); MONO # 0.5 K/uL (0.0-0.8); MONO % 10.3 % (0.0-10.0); NEUT # 2.6 K/uL (1.8-7.0); NEUT % 53.8 % (50.0-75.0); NRBC % 0.1 % (0.0-2.0); RBC 3.25 Mil/uL (4.40-5.90); RED CELL DISTRIBUTION WIDTH 14.3 % (11.5-14.5); WHITE BLOOD COUNT 4.7 K/uL (4.8-10.8)
[2017-03-10 12:51] LABS: INR 1.3; PROTHROMBIN TIME 14.6 SECONDS (9.7-12.2)
[2017-03-10 13:10] LABS: ALBUMIN 4.1 g/dL (3.5-5.0); CALCIUM 8.9 mg/dl (8.6-10.4); TROPONIN I 0.075 ng/mL (0.00-0.120)
[2017-03-10 14:57] VITALS: TEMP 97.1
--- NOTE | 2017-03-10 15:07 | CP.PCM.CON ---
History of Present Illness - History of Present Illness History of Present Illness: Renal Note Pt planned for dialysis today d/w dialysis staff Past Patient History - Infectious Disease Hx of Infectious Diseases: None - Past Social History Smoking Status: Never Smoked - CARDIAC Hx Atrial Fibrillation: Yes Hx Congestive Heart Failure: Yes Hx Hypertension: Yes Hx Pacemaker: Yes - NEUROLOGICAL HX Cerebrovascular Accident: Yes - RENAL Date of Last Dialysis Treatment: 03/04/17 Hx Renal Failure: Yes Other/Comment: dialysis days - ENDOCRINE/METABOLIC Hx Diabetes Mellitus Type 2: Yes - PSYCHIATRIC Hx Substance Use: No - SURGICAL HISTORY Hx Surgeries: Yes Other/Comment: left arm av shunt placement. heart surgery to remove fluid from the heart - ANESTHESIA Hx Anesthesia: Yes Hx Anesthesia Reactions: No Hx Malignant Hyperthermia: No Meds Allergies/Adverse Reactions: Allergies Allergy/AdvReac Type Severity Reaction Status Date / Time No Known Allergies Allergy Verified 03/03/17 14:47 Results - Vital Signs Recent Vital Signs: Last Vital Signs Temp 97.1 F L 03/10/17 14:35 Pulse 65 03/10/17 14:35 Resp 20 03/10/17 14:35 BP 128/86 03/10/17 15:01 Pulse Ox 100 03/10/17 14:30 - Labs Result Diagrams: 03/10/17 12:36 03/10/17 12:36 Labs: Laboratory Results - last 24 hr 03/10/17 03/10/17 03/10/17 12:36 12:36 12:36 WBC 4.7 L RBC 3.25 L Hgb 10.6 L Hct 32.1 L MCV 98.7 H MCH 32.5 H MCHC 32.9 L RDW 14.3 Plt Count 143 MPV 7.9 Neut % (Auto) 53.8 Lymph % (Auto) 30.7 [place] % (Auto) 10.3 H Eos % (Auto) 5.0 H Baso % (Auto) 0.2 Neut # 2.6 Lymph # 1.5 [place] # 0.5 Eos # 0.2 Baso # 0.0 PT 14.6 H INR 1.3 APTT 33 Sodium 138 Potassium 4.9 Chloride 95 L Carbon Dioxide 26 Anion Gap 22 H BUN 69 H Creatinine 11.0 H* Est GFR ( Amer) 6 Est GFR (Non-Af Amer) 5 Random Glucose 86 Calcium 8.9 Total Bilirubin 1.3 AST 30 ALT 13 L Alkaline Phosphatase 73 Troponin I 0.0750 Total Protein 8.1 Albumin 4.1 Globulin 4.0 H Albumin/Globulin Ratio 1.0
[2017-03-10 16:52] VITALS: RESP 22; O2SAT 99
[2017-03-10 17:13] VITALS: BP 144/114; PULSE 77
--- NOTE | 2017-03-12 00:06 | CARD ---
APPROVED REPORT EKG Measurement Heart [id number] <Conclusion> Atrial fibrillation Rightward axis Nonspecific ST and T wave abnormality Abnormal ECG
== END 2017-03-10 16:52 | disposition home or self-care (01) ==
LOC: C.ER 11:43 → C.9E 12:33
PROVIDERS: ADMIT Internal Medicine; ATTEND Internal Medicine
DX: I13.2 Hypertensive heart and chronic kidney disease with heart failure and with stage 5 chronic kidney disease, or end stage renal disease (principal); E11.22 Type 2 diabetes mellitus with diabetic chronic kidney disease; I50.9 Heart failure, unspecified; I48.91 Unspecified atrial fibrillation; N18.6 End stage renal disease; Z86.73 Personal history of transient ischemic attack (TIA), and cerebral infarction without residual deficits; Z95.0 Presence of cardiac pacemaker; Z99.2 Dependence on renal dialysis
CPT/HCPCS: 80053; 84484; 85025; 85610; 85730; G0257; G0378; J1170